=== PATIENT | male | born 1970 | race Caucasian/White ===

== ENCOUNTER 2017-05-14 16:13 | Emergency (ER) | payer MEDICAID ==
[~2017-05-14] VITALS: Ht 175.3 cm; Wt 90.7 kg
[2017-05-14 16:30] VITALS: BP 108/52
[2017-05-14] MEDS ORDERED: predniSONE 20 MG TABLET PO ONE (17:00)
[2017-05-14] MEDS ORDERED: ALBUTEROL FS 2.5 MG/3 ML VIAL.NEB NEB ONE (17:00)
[2017-05-14] MEDS ORDERED: IPRATROPIUM NEB FS 0.5 MG/2.5 ML AMPUL.NEB NEB ONE (17:00)
[2017-05-14] MEDS ORDERED: predniSONE 20 MG TABLET ONE (17:06)
[2017-05-14] MEDS ORDERED: ALBUTEROL FS 2.5 MG/3 ML VIAL.NEB ONE (17:23)
[2017-05-14] MEDS ORDERED: IPRATROPIUM NEB FS 0.5 MG/2.5 ML AMPUL.NEB ONE (17:23)
--- NOTE | 2017-05-14 17:28 | NUR ---
RT AT BEDSIDE FOR BREATHING TX.
== END 2017-05-14 18:12 | disposition home or self-care (01) ==
LOC: ER 16:14
DX: J20.9 Acute bronchitis, unspecified (principal); I10 Essential (primary) hypertension; D64.9 Anemia, unspecified
CPT/HCPCS: 71045; 94640 ×2; 99284; A4606; J7512; Z7610

== ENCOUNTER 2017-07-30 15:37 | Emergency (ER) | payer MEDICAID ==
[~2017-07-30] VITALS: Ht 175.3 cm; Wt 90.7 kg
[2017-07-30 15:37] VITALS: BP 129/66
--- NOTE | 2017-07-30 16:29 | NUR ---
CALLED RT FOR BREATHING TX
[2017-07-30] MEDS ORDERED: predniSONE 20 MG TABLET PO ONE (16:30)
[2017-07-30] MEDS ORDERED: ALBUTEROL FS 2.5 MG/3 ML VIAL.NEB NEB ONE ×2 (16:30→17:30)
[2017-07-30] MEDS ORDERED: IPRATROPIUM NEB FS 0.5 MG/2.5 ML AMPUL.NEB NEB ONE (16:30)
[2017-07-30] MEDS ORDERED: IPRATROPIUM NEB FS 0.5 MG/2.5 ML AMPUL.NEB ONE (16:32)
[2017-07-30] MEDS ORDERED: ALBUTEROL FS 2.5 MG/3 ML VIAL.NEB ONE ×2 (16:32→17:40)
[2017-07-30] MEDS ORDERED: predniSONE 20 MG TABLET ONE (16:43)
== END 2017-07-30 17:56 | disposition home or self-care (01) ==
LOC: ER 15:40
DX: J20.9 Acute bronchitis, unspecified (principal); I51.7 Cardiomegaly; J01.90 Acute sinusitis, unspecified; I10 Essential (primary) hypertension; D64.9 Anemia, unspecified; Z87.891 Personal history of nicotine dependence
CPT/HCPCS: 71045; 93005; 94640 ×4; 99285; A4606; J7512; Z7610

== ENCOUNTER 2019-10-27 21:34 | Emergency (ER) | payer MEDICAID ==
[~2019-10-27] VITALS: Ht 175.3 cm; Wt 82.6 kg
[2019-10-27 21:34] VITALS: BP 112/65
--- NOTE | 2019-10-27 21:45 | NUR ---
SHANTELLE LEAL PAC AT THE BED SIDE
== END 2019-10-27 21:54 | disposition home or self-care (01) ==
LOC: ER 21:36
DX: Z76.0 Encounter for issue of repeat prescription (principal); I10 Essential (primary) hypertension; Z87.891 Personal history of nicotine dependence